=== PATIENT | male | born 1975 | race Native Hawaiian/Other Pacific Islander ===

== ENCOUNTER 2017-09-01 08:16 | Day surgery (SDC) | payer OTHER ==
[2017-09-01 08:53] VITALS: BMI 28.5
[2017-09-01] MEDS ORDERED: Propofol 10 mg/ml Inj (20 ML) ONE (11:05)
--- NOTE | 2017-09-01 11:12 | CP.SDSHP ---
Same Day Surgery H & P - History Proposed Procedure: colonoscopy Pre-Op Diagnosis: lower GI bleed - Allergies Allergies: Allergies No Known Allergies Allergy (Verified 09/01/17 08:49) - Physical Exam Vital Signs: Vital Signs 09/01/17 09:15 Temperature 97.6 F Pulse Rate 80 Respiratory 20 Rate Blood Pressure 126/77 O2 Sat by Pulse 99 Oximetry Mental Status: Alert & Oriented x3 Neuro: WNL Heart: WNL Lungs: WNL GI: WNL - {Optional Preform as Required} Abdomen: WNL - Impression Impression: lower GI bleed Pt. Evaluated Today:Candidate for Anesthesia & Procedure: Yes - Date & Time Date: 09/01/17 Time: 11:12 Short Stay Discharge - Short Stay Discharge Admitting Diagnosis/Reason for Visit: CONSTIPATION Disposition: HOME/ ROUTINE
[2017-09-01 13:40] VITALS: TEMP 97
[2017-09-01 13:42] VITALS: RESP 15
[2017-09-01 13:47] VITALS: BP 96/55; PULSE 68; O2SAT 97
== END 2017-09-01 12:45 | disposition home or self-care (01) ==
LOC: C.ENDO 08:16
PROVIDERS: ATTEND Internal Medicine Gastroenterology
DX: K62.5 Hemorrhage of anus and rectum (principal); K59.00 Constipation, unspecified; K64.8 Other hemorrhoids
CPT/HCPCS: 45380; 88305; J2704; J3010